=== PATIENT | female | born 1940 | race Caucasian/White ===

== ENCOUNTER → 2023-07-07 09:25 | Outpatient (REF) | payer MEDICARE, SELFPAY | LOC: RAD 09:25 | PROVIDERS: ATTENDING PHYSICIAN Surgery Vascular Surgery; FAMILY PHYSICIAN Internal Medicine Geriatric Medicine | DX: R25.2 Cramp and spasm (principal); I87.2 Venous insufficiency (chronic) (peripheral) | CPT/HCPCS: 93922; 93925; 93970 ==

== ENCOUNTER → 2023-08-20 08:30 | Outpatient (REF) | payer MEDICARE, SELFPAY | LOC: RAD 08:30 | PROVIDERS: ATTENDING PHYSICIAN Internal Medicine Cardiovascular Disease; FAMILY PHYSICIAN Internal Medicine Geriatric Medicine | DX: I25.10 Atherosclerotic heart disease of native coronary artery without angina pectoris (principal); Z86.73 Personal history of transient ischemic attack (TIA), and cerebral infarction without residual deficits; I35.1 Nonrheumatic aortic (valve) insufficiency | CPT/HCPCS: 93306; 93880 ==

== ENCOUNTER → 2024-03-26 10:17 | Outpatient (REF) | payer MEDICARE, SELFPAY | LOC: PAVMRI 10:17 | PROVIDERS: ATTENDING PHYSICIAN Psychiatry & Neurology Neurology; FAMILY PHYSICIAN Internal Medicine Geriatric Medicine | DX: R27.0 Ataxia, unspecified (principal) | CPT/HCPCS: 70551 ==